=== PATIENT | female | born 1950 | race Caucasian/White ===

== ENCOUNTER 2018-06-30 04:52 | Inpatient (IN) | payer OTHER, MEDICARE ==
[2018-06-22 07:54] VITALS: BMI 31.0
[2018-06-23 14:00] VITALS: BMI 31.0
--- NOTE | 2018-06-23 14:23 | PAT Medication Instructions ---
Service Date Jun 23, 2018. Current Home Medication List Alendronate Sodium (Fosamax), 70 MG PO WK Hydrochlorothiazide (Hydrochlorothiazide), 1 TAB PO QAM Meloxicam (Mobic), 15 MG PO QAM Simvastatin (Simvastatin), 1 TAB PO QAM Medication Instructions For Your Scheduled Surgery - Continue as directed: Alendronate Sodium (Fosamax), 70 MG PO WK - Check with surgeon for instructions: Meloxicam (Mobic), 15 MG PO QAM - Hold the following medications the morning of surgery: Hydrochlorothiazide (Hydrochlorothiazide), 1 TAB PO QAM - Take the following medications the morning of surgery with a sip of water: Simvastatin (Simvastatin), 1 TAB PO QAM If you have any questions please call us at [phone] or [phone] or [phone]
[2018-06-23 15:44] LABS: BASO % 0.1 %; BASO ABS # 0.01 K/uL (0-0.2); EOS % 2.4 %; EOS ABS # 0.16 K/uL (0-0.5); HEMATOCRIT 40.1 % (37-47); HEMOGLOBIN 13.3 g/dL (12.0-16.0); IG# 0.01 K/uL (0.00-0.02); LYMPH % 25.9 %; LYMPH ABS # 1.73 K/uL (1.2-3.4); MEAN CELL VOLUME 94.4 fL (80-100); MEAN CORPUSCULAR HEMOGLOBIN 31.3 pg (25-34); MEAN CORPUSCULAR HGB CONC 33.2 g/dl (32-36); MEAN PLATELET VOLUME 12.1 fL (7.4-10.4); MONO % 5.1 %; MONO ABS # 0.34 K/uL (0.11-0.59); NEUT % 66.4 %; NEUT ABS # 4.43 K/uL (1.4-6.5); PLATELET COUNT 300 K/uL (130-400); RED CELL DISTRIBUTION WIDTH CV 12.8 % (11.5-14.5); RED CELL DISTRIBUTION WIDTH SD 44.1 fL (36.4-46.3); WHITE BLOOD COUNT 6.68 K/uL (4.8-10.8)
[2018-06-23 16:03] LABS: INR 0.9 (0.9-1.1); PTT PATIENT 23.8 SECONDS (21.0-31.0)
--- NOTE | 2018-06-29 11:31 | HISTORY & PHYSICAL EXAMINATION ---
DATE OF ADMISSION: 06/30/2018 CHIEF COMPLAINT: Left knee pain. HISTORY OF PRESENT ILLNESS: The patient is a 67-year-old female with known osteoarthritis about her bilateral knees, left worse than right. She has had previous corticosteroid as well as viscosupplementation injections. She continues to have pain and disability and now desires to proceed with left total knee arthroplasty. PAST MEDICAL HISTORY: Coronary artery disease, hypertension, hypercholesterolemia, osteoarthritis. PAST SURGICAL HISTORY: Appendectomy, tonsillectomy, tubal ligation. MEDICATIONS: Hydrochlorothiazide 12.5 mg daily, simvastatin 20 mg daily. ALLERGIES: PENICILLIN AND SULFA. SOCIAL HISTORY AND REVIEW OF SYSTEMS: Noncontributory. PHYSICAL EXAMINATION: GENERAL: Well-nourished, well-developed elderly female, who appears stated age. HEENT: Normocephalic, atraumatic, extraocular movements intact, oropharynx pink and moist. NECK: Supple without adenopathy. LUNGS: Clear to auscultation bilaterally. HEART: Regular rate and rhythm. ABDOMEN: Soft, nontender, nondistended. EXTREMITIES: The upper extremities are within normal limits. The left knee has a valgus alignment. She complains primarily of lateral compartment pain. Her range of motion is from 0-120 degrees. X-RAYS: X-rays were reviewed. She has a valgus aligned knee. She has bone on bone arthritis of the lateral compartment with lateral joint line osteophytes. She has moderate degenerative changes about the patellofemoral joint with osteophytes as well. ASSESSMENT: Left knee degenerative joint disease. PLAN: Risks versus benefits were discussed. Consent was obtained. The patient's primary care physician is Dr. Og from [place]. Will proceed with left total knee arthroplasty as indicated.
[2018-06-30] VITALS (10 sets, daily range): BP systolic 114–180; BP diastolic 68–111; PULSE 47–60; TEMP 36.4–36.7; O2SAT 94–100; Ht 165.1 cm; Wt 86.5 kg
[~2018-06-30] VITALS: Ht 165.1 cm; Wt 86.5 kg
[~2018-06-30 04:52] MED LIST: ALEN70TA4 PO; HYDR12.55 PO; MELO-84 PO; ZCR40 PO
[2018-06-30] MEDS ORDERED: ACET-1311 PO (05:43)
[2018-06-30] MEDS ORDERED: METOCLOPRAMIDE HCL 10 MG TAB PO SCH (06:00)
[2018-06-30] MEDS ORDERED: DEXAMETHASONE 4 MG TAB PO SCH (06:00)
[2018-06-30] MEDS ORDERED: TRANEXAMIC ACID INJ 1,000 MG x 1 Bag Intra-Op IV SCH ×2 (06:00)
[2018-06-30] MEDS ORDERED: CEFAZOLIN 2000MG IV PUSH 15 ML IV SCH (06:00)
[2018-06-30] MEDS ORDERED: LACTATED RINGER'S 1000ML 500 ML IV SCH (06:00)
[2018-06-30] MEDS ORDERED: ACETAMINOPHEN 500 MG TAB PO SCH (06:00)
[2018-06-30] MEDS ORDERED: GABAPENTIN 300 MG CAP PO SCH (06:00)
[2018-06-30] MEDS ORDERED: ROPIVACAINE 5MG/ML 30 ML 150 MG, BUPIVACAINE 0.5% MPF INJ 30 ML, EpINEphrine HCL INJ 0.... INFIL SCH ×8 (06:00)
[2018-06-30] MEDS ORDERED: CeleBREX 200 MG CAP PO SCH (06:00)
[2018-06-30] MEDS ORDERED: FAMOTIDINE 20 MG TAB PO SCH (06:00)
[2018-06-30] MEDS ORDERED: LACTATED RINGER'S 1000ML 1,000 ML IV SCH (06:00)
[2018-06-30] MEDS ORDERED: FENTANYL CITRATE INJ 50 MCG/1 ML 2 ML VIAL ONE ×2 (06:30→07:25)
[2018-06-30] MEDS ORDERED: MIDAZOLAM HCL 1 MG/ML 2ML VIAL ONE ×3 (06:30→07:25)
[2018-06-30] MEDS ORDERED: BUPIVACAINE 0.5 % 5 MG/1 ML PF 10ML VIAL ONE (06:43)
[2018-06-30] MEDS ORDERED: EpINEphrine INJ 1MG/ML AMP 1 MG/ML AMP ONE (06:44)
[2018-06-30] MEDS ORDERED: BUPIVACAINE 0.25% 30 ML VIAL ONE (06:44)
--- NOTE | 2018-06-30 07:06 | History & Physical Bridge Note ---
H&P Re-Evaluation Bridge Note: I have examined the patient, reviewed the History & Physical and in the interval since the performance of the History & Physical I have noted the following changes of clinical significance: No changes noted
[2018-06-30] MEDS ORDERED: ROPIVACAINE 0.5% 5 MG/ML 30 ML VIAL ONE (07:10)
[2018-06-30] MEDS: TRANEXAMIC ACID INJ 1,000 MG x 2 Bags IV SCH ×4 (07:15→10:29)
[2018-06-30] MEDS ORDERED: ORTHO JOINT ANESTHETIC ONE (07:17)
[2018-06-30] MEDS ORDERED: POVIDONE-IODINE OP SOLN 30 ML BTL ONE (07:17)
[2018-06-30] MEDS ORDERED: BACITRACIN 50000 UNIT VIAL ONE (07:17)
[2018-06-30] MEDS ORDERED: PROPOFOL IV EMULSION 10 MG/ML 20 ML VIAL ONE ×2 (07:50→08:19)
[2018-06-30] MEDS ORDERED: LIDOCAINE HCL 2% 2 ML VIAL (20MG/ML) ONE (07:50)
--- NOTE | 2018-06-30 08:37 | [facility] Post Operative Brief Note ---
Immediate Operative Summary Operative Date Jun 30, 2018. Pre-Operative Diagnosis Left knee degenerative joint disease Post-Operative Diagnosis Left knee degenerative joint disease Procedure(s) Performed Left total knee arthroplasty, cemented Surgeon Dr. Novoa Irrigation Teacher Surgeon(s) Kelvin Lee PA-C Estimated Blood Loss 10cc Findings Consistent with Post-Op Diagnosis Specimens A: Left knee bone and tissue Anesthesia Type MAC Spinal Regional Complication(s) none Disposition Accompanied Pt To Recover: no Disposition: Recovery Room / PACU Overlapping Procedure I was present for: the critical portions of procedure. I was immediately available: during the entire case
[2018-06-30] MEDS ORDERED: ONDANSETRON INJ 2 MG/ML 2 ML VIAL ONE (08:44)
--- NOTE | 2018-06-30 08:59 | OPERATIVE REPORT ---
DATE OF OPERATION: 06/30/2018 PREOPERATIVE DIAGNOSIS: Osteoarthritis, left knee. POSTOPERATIVE DIAGNOSIS: Osteoarthritis, left knee. PROCEDURE: Left total knee arthroplasty. SURGEON: River Novoa MD. SUSTAINMENT LOGISTICS ANALYST: Kelvin Lee PA-C. ANESTHESIA: Spinal. COMPLICATIONS: None. DISPOSITION AND CONDITION: Recovery room, stable. IMPLANTS USED: Femoral size 3, tibial size 2, tibial poly 16, patella size 36. OPERATION AND FINDINGS: Following induction of spinal anesthesia, the patient's left leg was prepped and draped in the usual sterile manner. Limb was exsanguinated with an Esmarch bandage and tourniquet was inflated to 350 mmHg. A longitudinal incision was made anteriorly. Subcutaneous tissue was sharply dissected. Electrocautery was used for hemostasis. Prepatellar bursa was incised and median parapatellar incision was performed. Patella was everted, and the knee was flexed. Fat pad was removed to aid in visualization, and the anterior and posterior cruciate ligaments were removed. The medial face of the tibia was cleared of soft tissue first with a Bovie and a Lakhani elevator. This tissue was retracted posteriorly using a blunt Hohmann. A Gunter retractor was used to expose the synovium above on the anterior aspect of the femur, and this was removed down to bone. The PSI guide was placed on the distal femur and two pins were placed anteriorly and kept in position and two additional pins were placed distally and removed. The distal femoral cutting block was placed in position and the distal femoral cut was used in the +0 setting. Next, the cutting block was removed and the size 3 block was placed in the distal end of the femur. Care was taken to ensure appropriate external rotation, and a feeler gauge was used to ensure no notching would occur. The femoral block was centered on the distal femur and in the medial and lateral direction and was fixed using two bone screws. The gold pins were then removed. The oscillating saw was used to create the bone cuts, and the distal femoral cutting block was removed, and the reciprocating saw was used to further trim the femoral cuts as well as a deep in the area for the trochlear groove. Next, posterior condyle remnants were removed. Following this, a meniscal clamp and knife were utilized to remove the anterior portion of both medial and lateral meniscus. The proximal tibia PSI guide was placed into position, and the proximal tibial cutting guide was screwed into position. The extra medullary alignment guide was utilized to ensure appropriate alignment. The proximal tibia was cut, and the proximal tibial cutting block was removed, and this bone fragment was removed. The appropriate guide was used to perform the notch cut on the distal femur, and a lamina upholstery repairer and a cochlear knife were utilized to finish both medial and lateral meniscectomies to remove any remnants of the posterior or anterior cruciate ligaments. Following this, the distal femoral component was impacted into position, and blunt Hohmann was used to sublux the tibia anteriorly. The proximal tibia was sized, and a size 2 tibial tray was chosen as the size to be used. This was put into position and appropriate external rotation and a double check with extramedullary alignment guide was performed. The canal for the tibial stem was prepared first with a 17 mm drill and then the punch and a mallet and the trial tibial poly was placed. A 16 was chosen the size to be used. It was brought to extension and the patella was prepared with the patellar reamer. A size 36 component was chosen the size to be used. The trial component was placed, and knee was taken through a full range of motion and there was found to be no lateral subluxation of the tibia. No lateral release was required. The trials were all removed. The final components were obtained and assembled. Cement was mixed. The knee was thoroughly irrigated, and the ortho mix was injected about the knee joint. The final components were cemented into position. After thoroughly suctioning and drying the bone ends, all excess cement was removed. The knee was held in extension while the cement hardened. The wound was irrigated and closed over a Hemovac drain. A #1 Vicryl was used to close the extensor mechanism. Subcutaneous tissues closed using 0 Dexon. Skin was closed with yogi. Sterile dressing of Adaptic, 4x4s, sterile Webril, and Roberto Carlos was applied. The patient tolerated the procedure well. Due to the complex nature of the procedure, the entire surgery was performed with the operational assistance of Kelvin Lee PA-C. The assistant engineer, under direct supervision, was involved in the actual performance of all aspects of the surgical procedure including hemostasis, tissue retraction and incision, instrument management, patient positioning, and wound closure. I attest to the content of the Intraoperative Record and any orders documented therein. Any exception s are noted below.
[2018-06-30] MEDS ORDERED: FENTANYL CITRATE INJ 50 MCG/1 ML 2 ML VIAL IV PRN (09:00)
[2018-06-30] MEDS ORDERED: HYDROmorphone INJ 2 MG/ML SYR/VIAL IV PRN (09:00)
[2018-06-30] MEDS ORDERED: FLUMAZENIL 0.1 MG/1 ML 10 ML VIAL IV PRN (09:00)
[2018-06-30] MEDS ORDERED: NALOXONE HCL 0.4 MG/1 ML VIAL/CARP IV PRN (09:00)
[2018-06-30] MEDS ORDERED: ATROPINE SULFATE 0.1 MG/ML 5ML SYR IV PRN (09:00)
[2018-06-30] MEDS ORDERED: LABETALOL HCL IV 5 MG/ML 20ML IV PRN (09:00)
[2018-06-30] MEDS ORDERED: EpHEDrine SULFATE INJ 50 MG/ML AMP IV PRN (09:00)
[2018-06-30] MEDS ORDERED: ONDANSETRON INJ 2 MG/ML 2 ML VIAL IV PRN ×2 (09:00→09:15)
[2018-06-30] MEDS ORDERED: MEPERIDINE HCL 25 MG/ML CARP IV PRN (09:00)
[2018-06-30] MEDS ORDERED: PHENYLEPHRINE 100MCG/ML 5ML SYR IV PRN (09:00)
[2018-06-30] MEDS ORDERED: METOCLOPRAMIDE HCL INJ 5 MG/ML 2 ML VIAL IV PRN (09:15)
[2018-06-30] MEDS ORDERED: MoRPHine SULFATE 2 MG/ML CARP IV PRN (09:15)
[2018-06-30] MEDS ORDERED: CEFAZOLIN IV 2,000 MG in DEXTROSE 5% 50ML 50 ML IV SCH (09:15)
[2018-06-30] MEDS ORDERED: ALUMINUM/MAGNESIUM/SIMETH (MAALOX MAX) 30 ML UDC PO PRN (09:15)
[2018-06-30] MEDS ORDERED: ZOLPIDEM TARTRATE 5 MG TAB PO PRN (09:15)
[2018-06-30] MEDS ORDERED: MAGNESIUM HYDROXIDE SUSP 30 ML UDC PO PRN (09:15)
--- NOTE | 2018-06-30 09:41 | Anesthesiology Progress Note ---
Anesthesia Post Op Note Date & Time Jun 30, 2018 at 09:41 Vital Signs Pain Intensity: 0 Vital Signs Past 12 Hours Date Time Temp Pulse Resp B/P (MAP) Pulse Ox O2 Delivery O2 Flow Rate FiO2 06/30/18 09:30 60 17 139/74 98 Nasal Cannula 2 06/30/18 09:20 68 17 138/73 98 Nasal Cannula 2 06/30/18 09:10 65 17 127/92 98 Nasal Cannula 2 06/30/18 09:04 36.4 74 20 128/68 95 Room Air 06/30/18 05:50 36.4 58 20 180/111 99 Room Air Notes Mental Status: alert / awake / arousable, participated in evaluation Pt Amnestic to Procedure: Yes Nausea / Vomiting: adequately controlled Pain: adequately controlled Airway Patency, RR, SpO2: stable & adequate BP & HR: stable & adequate Hydration State: stable & adequate Neuraxial Anesthesia: was administered, sensory block is resolving Anesthetic Complications: no major complications apparent
--- NOTE | 2018-06-30 09:46 | DIAGNOSTIC IMAGING REPORT ---
LEFT KNEE 2 VIEWS History: Left total knee arthroplasty. Degenerative arthritis. Postop. FINDINGS: The patient is status post a left total knee arthroplasty. The hardware is intact. No fracture or dislocation. Surgical drains are in place. IMPRESSION: Left total knee arthroplasty. No evidence for hardware complication. Electronically signed by: Bebeto Nassar M.D. 06/30/2018 9:44 AM Dictated Date/Time: 06/30/2018 9:44 AM
[2018-06-30] MEDS ORDERED: NURSING VERBAL MED ORDER ONE (11:30)
[2018-06-30] MEDS: FERROUS GLUCONATE 324 MG TAB PO SCH ×2 (13:22→17:43)
[2018-06-30] MEDS: KETOROLAC TROMETHAMINE 15 MG/ML VIAL IV. SCH ×3 (13:23→23:58)
[2018-06-30] MEDS: ACETAMINOPHEN 500 MG TAB PO SCH ×2 (13:23→19:43)
[2018-06-30] MEDS: CEFAZOLIN IV 2,000 MG in SYRINGE 0 ML IV SCH ×2 (14:36→22:38)
[2018-06-30] MEDS: D5W AND 1/2NSS + 20MEQ KCL 1,000 ML IV SCH (18:29)
[2018-06-30] MEDS: ASPIRIN 81 MG ECTAB PO SCH (21:05)
[2018-06-30] MEDS: DOCUSATE SODIUM 100 MG CAP PO SCH (21:05)
[2018-06-30] MEDS: OXYCODONE HCL IR 5 MG TAB (IMMEDIATE RELEASE) PO PRN (23:31)
[2018-07-01 03:37] VITALS: BP 112/69; PULSE 54; TEMP 36.6; O2SAT 98
[2018-07-01] MEDS: D5W AND 1/2NSS + 20MEQ KCL 1,000 ML IV SCH (04:04)
[2018-07-01] MEDS: ACETAMINOPHEN 500 MG TAB PO SCH ×3 (04:04→20:05)
[2018-07-01] MEDS: OXYCODONE HCL IR 5 MG TAB (IMMEDIATE RELEASE) PO PRN ×4 (05:26→20:57)
[2018-07-01] MEDS: KETOROLAC TROMETHAMINE 15 MG/ML VIAL IV. SCH (06:04)
[2018-07-01 06:29] LABS: HEMATOCRIT 31.3 % (37-47); HEMOGLOBIN 10.3 g/dL (12.0-16.0); MEAN CORPUSCULAR HEMOGLOBIN 30.9 pg (25-34); MEAN CORPUSCULAR HGB CONC 32.9 g/dl (32-36); MEAN PLATELET VOLUME 11.7 fL (7.4-10.4); PLATELET COUNT 219 K/uL (130-400); RED CELL DISTRIBUTION WIDTH CV 12.8 % (11.5-14.5); RED CELL DISTRIBUTION WIDTH SD 43.6 fL (36.4-46.3); WHITE BLOOD COUNT 10.94 K/uL (4.8-10.8)
[2018-07-01 06:59] VITALS: BP 135/80; PULSE 53; TEMP 36.6; O2SAT 94
[2018-07-01 07:07] LABS: CALCIUM 7.8 mg/dl (8.5-10.1); CREATININE 1.04 mg/dl (0.60-1.20); POTASSIUM 4.2 mmol/L (3.5-5.1)
[2018-07-01] MEDS ORDERED: DEXAMETHASONE INJ 10 MG in SYRINGE 0 ML IV ONE (07:30)
--- NOTE | 2018-07-01 07:30 | Orthopedic Progress Note ---
Orthopedic Progress Note Date of Service Jul 01, 2018. Subjective Post OP Day: 1 Reports: feeling well Objective N/V intact, dressing C/D/I (Hemovac d/c'd), toes mobile Date Time Temp Pulse Resp B/P (MAP) Pulse Ox O2 Delivery O2 Flow Rate FiO2 07/01/18 06:59 36.6 53 16 135/80 (98) 94 Room Air 07/01/18 03:37 36.6 54 16 112/69 (83) 98 Room Air 06/30/18 23:30 94 Room Air 2.0 06/30/18 23:08 36.6 51 16 114/68 (83) 94 Room Air 06/30/18 20:01 36.7 60 16 133/76 (95) 95 Room Air 06/30/18 18:33 97 Room Air 06/30/18 15:01 36.4 47 16 134/83 (100) 97 Room Air 06/30/18 13:00 56 18 135/80 (98) 100 06/30/18 12:00 50 16 142/85 (104) 98 2.0 06/30/18 11:00 54 18 143/88 (106) 100 06/30/18 10:00 Nasal Cannula 2.0 06/30/18 10:00 Nasal Cannula 2.0 06/30/18 10:00 36.6 58 15 132/74 (93) 99 Nasal Cannula 2.0 06/30/18 09:40 63 19 123/63 98 Nasal Cannula 2 06/30/18 09:30 60 17 139/74 98 Nasal Cannula 2 06/30/18 09:20 68 17 138/73 98 Nasal Cannula 2 06/30/18 09:10 65 17 127/92 98 Nasal Cannula 2 06/30/18 09:04 36.4 74 20 128/68 95 Room Air Laboratory Results 24 Hours: Test 07/01/18 06:04 Hematocrit 31.3 % Hemoglobin 10.3 g/dL Assessment & Plan Assessment: 68 yo female stable POD #1 s/p left TKA Plan: 1. Med management 2. DVT prophylaxis- ASA, SCDs 3. PT/OT 4. D/C planning- home w/ HH
--- NOTE | 2018-07-01 07:31 | Discharge Instructions ---
Discharge Instructions Date of Service Jul 01, 2018. Admission Reason for Admission: Left Knee Osteoarthritis Discharge Discharge Diagnosis / Problem: Left knee arthritis Discharge Goals Goal(s): Decrease discomfort, Improve function Activity Recommendations Activity Limitations: as noted below Weightbearing Status: Left weightbearing (as tolerated) . Instructions / Follow-Up Instructions / Follow-Up ACTIVITY RECOMMENDATIONS: SELF CARE INSTRUCTIONS AFTER TOTAL KNEE REPLACEMENT A. You may need to continue a physical therapy program after discharge from the hospital. There are several options available to you. Your doctor will assist you in selecting the best one for you. 1. An out-patient facility 2 to 3 times a week for therapy or home therapy. 2. Continue working on all exercises taught to you in the hospital. Your goals should be to increase bending of your knee to 90 degrees and beyond and to fully straighten your knee. B. You may progress at your own pace from walking with a walker or crutches to a cane; then to no assistive devices. C. Make walking a part of your daily routine. Be up as much as comfortable with rest periods throughout the day. Rest with leg elevation is very important. Use the ice wrap frequently for the first 3-4 weeks. D. There are no restrictions on activities. You may ride in a car, shop, participate in mapping pilot and all social activities. E. Wear the long elastic stockings (PRADIP hose) 20 hours a day for 2 weeks after surgery. They can be removed several times a day for laundering and for a bath. F. You may shower, no tub baths until cleared by your doctor. SPECIAL CARE INSTRUCTIONS: VERY IMPORTANT TO READ AND REVIEW A. There are a few signs you need to watch for after you are home. Call [facility] if you notice any of the followin. Increased severe knee pain. Some pain is expected especially when you exercise. 2. Increased swelling in your leg or knee; pain or swelling of the calf muscle in either lower leg. 3. Any fluid drainage from the incision. 4. Shortness of breath or chest pain. B. Please call [facility] at if you have any concerns or questions about your operation or recovery. The doctor or his nurse will return your call promptly. C. You must take antibiotics before dental work, bladder, bowel or other surgery. Your doctor will provide you with a permanent care to carry describing this precaution. IMPORTANT: * REMEMBER TO TAKE ASPIRIN, 81 MG, TWICE DAILY FOR 4 WEEKS UNLESS OTHERWISE DIRECTED. THIS IS YOUR BLOOD THINNER. * HIGH RISK PATIENTS MAY BE PRESCRIBED A STRONGER BLOOD THINNER. THIS WILL BE PROVIDED AT DISCHARGE. * CALL IF INCREASED PAIN, REDNESS, DRAINAGE OR FEVER GREATER THAT 101. * WEAR PRADIP HOSE 20 HOURS PER DAY FOR 2 WEEKS. Silverlon- This is a large adhesive bandage that contains silver ions. This helps your incision heal by fighting off bacteria and protecting it from the outside environment. You are permitted to shower with this dressing. This will remain on your incision for 7 days and then should be removed. Some visible blood or drainage through the dressing window is normal. If there is significant drainage or leaking noted before the 7 days notify your doctor's office immediately. Once removed, keep incision clean and dry. If there is any drainage or redness noted, please call your surgeon. Zip Skin Closure You have a Zipline Closure System. As noted below, this keeps your incision closed. Change the dressing daily. Keep the wound covered with a dressing as it has the potential to snag on your clothing. The Zipline will remain on for a total of 2 weeks. Do not remove it! You will be given instructions by nursing staff at the time of discharge to care for your Zip Closure System. This devices uses plastic straps to keep your incision closed and protected throughout your recovery. If you have any questions please refer to these instructions first. FOLLOW UP VISIT: If appointment is not already scheduled: Please call [facility] to make a follow-up appointment for 2 weeks after your surgery at . Current Hospital Diet Patient's current hospital diet: Regular Diet Discharge Diet Recommended Diet: Regular Diet Procedures Procedures Performed: Left total knee arthroplasty, cemented Pending Studies Studies pending at discharge: no Laboratory Results Hemoglobin A1c Test 06/23/18 14:29 Range/Units Estimated Average Glucose 126 mg/dl Hemoglobin A1c 6.0 H 4.5-5.6 % Medical Emergencies . Who to Call and When: Medical Emergencies: If at any time you feel your situation is an emergency, please call 911 immediately. . Non-Emergent Contact Non-Emergency issues call your: Surgeon Call Non-Emergent contact if: temperature is above 101.5, your pain is not controlled, wound has increased drainage . "Provider Documentation" section prepared by Kelvin Lee PA-C. . [facility] Drug Monitoring Program Search Results: patient reviewed within database, no issues identified
[2018-07-01] MEDS: FERROUS GLUCONATE 324 MG TAB PO SCH ×3 (08:44→17:40)
[2018-07-01] MEDS: DOCUSATE SODIUM 100 MG CAP PO SCH ×2 (08:44→20:55)
[2018-07-01] MEDS: ASPIRIN 81 MG ECTAB PO SCH ×2 (08:44→20:55)
[2018-07-01] MEDS: HYDROCHLOROTHIAZIDE 25 MG TAB PO SCH (08:46)
[2018-07-01] MEDS: PANTOprazole SOD 40 MG TAB PO SCH (08:47)
[2018-07-01] MEDS: SIMVASTATIN 40 MG TAB PO SCH (08:47)
[2018-07-01] MEDS: MULTIVITAMIN TAB PO SCH (08:47)
--- NOTE | 2018-07-01 09:49 | Anesthesiology Progress Note ---
Anesthesia Post Op Note Date & Time Jul 01, 2018 at 09:49 Vital Signs Pain Intensity: 2.0 Vital Signs Past 12 Hours Date Time Temp Pulse Resp B/P (MAP) Pulse Ox O2 Delivery O2 Flow Rate FiO2 07/01/18 07:10 Room Air 07/01/18 06:59 36.6 53 16 135/80 (98) 94 Room Air 07/01/18 03:37 36.6 54 16 112/69 (83) 98 Room Air 06/30/18 23:30 94 Room Air 2.0 06/30/18 23:08 36.6 51 16 114/68 (83) 94 Room Air Notes Mental Status: alert / awake / arousable, participated in evaluation Pt Amnestic to Procedure: Yes Nausea / Vomiting: adequately controlled Pain: adequately controlled Airway Patency, RR, SpO2: stable & adequate BP & HR: stable & adequate Hydration State: stable & adequate Neuraxial Anesthesia: sensory block resolved Anesthetic Complications: no major complications apparent
[2018-07-01 11:28] VITALS: BP 125/77; PULSE 53; TEMP 36.4; O2SAT 91
[2018-07-01 14:55] VITALS: BP 128/76; PULSE 50; TEMP 36.5; O2SAT 92
[2018-07-01 22:55] VITALS: BP 138/78; PULSE 57; TEMP 36.7; O2SAT 95
[2018-07-02] MEDS: OXYCODONE HCL IR 5 MG TAB (IMMEDIATE RELEASE) PO PRN ×2 (03:49→07:50)
[2018-07-02] MEDS: ACETAMINOPHEN 500 MG TAB PO SCH ×2 (03:49→11:08)
[2018-07-02 06:38] VITALS: BP 143/81; PULSE 55; TEMP 36.6; O2SAT 96
[2018-07-02] MEDS: ASPIRIN 81 MG ECTAB PO SCH (07:48)
[2018-07-02] MEDS: HYDROCHLOROTHIAZIDE 25 MG TAB PO SCH (07:48)
[2018-07-02] MEDS: SIMVASTATIN 40 MG TAB PO SCH (07:49)
[2018-07-02] MEDS: DOCUSATE SODIUM 100 MG CAP PO SCH (07:49)
[2018-07-02] MEDS: FERROUS GLUCONATE 324 MG TAB PO SCH (07:49)
[2018-07-02] MEDS: PANTOprazole SOD 40 MG TAB PO SCH (07:49)
[2018-07-02] MEDS: MULTIVITAMIN TAB PO SCH (07:50)
[2018-07-02 07:55] VITALS: BP 130/70; PULSE 66; TEMP 36.4; O2SAT 98
--- NOTE | 2018-07-02 08:06 | Orthopedic Progress Note ---
Orthopedic Progress Note Date of Service Jul 02, 2018. Subjective Post OP Day: 2 Reports: feeling well, Denies: chest pain, SOB, nausea / vomiting, light headedness, calf pain Objective calves soft nontender, N/V intact, capillary refill less than 2 sec., dressing C /D/I, A&O x3, toes mobile Date Time Temp Pulse Resp B/P (MAP) Pulse Ox O2 Delivery O2 Flow Rate FiO2 07/02/18 07:08 36.6 55 16 96 Room Air 07/02/18 07:06 Room Air 07/02/18 06:38 36.6 55 16 143/81 (101) 96 Room Air 07/02/18 00:11 Room Air 07/01/18 22:55 36.7 57 16 138/78 (98) 95 Room Air 07/01/18 15:10 Room Air 07/01/18 14:55 36.5 50 16 128/76 (93) 92 Room Air 07/01/18 11:28 36.4 53 16 125/77 (93) 91 Room Air Assessment & Plan Assessment: 68 yo female stable POD #2 s/p left TKA Plan: 1. Med management 2. DVT prophylaxis- ASA, SCDs 3. PT/OT 4. D/C planning- home w/ HH. DC HOME TODAY AFTER PT
[2018-07-02] MEDS ORDERED: ONDA-170 PO (08:09)
[2018-07-02] MEDS ORDERED: ACET-24 PO (08:09)
[2018-07-02] MEDS ORDERED: RXC5 PO (08:09)
[2018-07-02] MEDS ORDERED: ASPI-461 PO (08:09)
== END 2018-07-02 11:53 | disposition home health service (06) | DRG 470 ==
LOC: C.ACU 04:52 → C.3E 07:00 → ENRESERV 09:34
PROC: 0SRD0J9 Replacement of Left Knee Joint with Synthetic Substitute, Cemented, Open Approach (ICD-10-PCS; principal; 2018-06-30 08:15)
DX: M17.0 Bilateral primary osteoarthritis of knee (principal); I11.9 Hypertensive heart disease without heart failure; I25.10 Atherosclerotic heart disease of native coronary artery without angina pectoris; E78.00 Pure hypercholesterolemia, unspecified; Z79.899 Other long term (current) drug therapy; Z88.0 Allergy status to penicillin; Z88.2 Allergy status to sulfonamides